=== PATIENT | male | born 1940 | race Caucasian/White ===

== ENCOUNTER 2022-12-21 12:07 | Observation (INO) | payer OTHER ==
[2022-12-21 13:49] LABS: BASO % 0.5 % (0-2.0); EOS % 1.7 % (0-4.5); HEMATOCRIT 40.3 % (35.4-49); HEMOGLOBIN 13.5 GM/dL (11.7-16.9); LYMPH % 26.4 % (8-40); MCH 28.6 pg (25.7-33.7); MCHC 33.5 g/dl (32.0-35.9); MEAN CELL VOLUME 85.5 fl (80-96); MONO % 7.7 % (3.8-10.2); NEUT % 63.7 % (42.8-82.8); PLATELET COUNT 279 10^3/uL (134-434); RBC 4.71 M/mm3 (4.00-5.60); RDW 14.5 % (11.9-15.9); WHITE BLOOD COUNT 7.3 K/mm3 (4.0-10.0)
[2022-12-21 13:59] LABS: INR 1.01 (0.83-1.09); PROTHROMBIN TIME (PATIENT) 11.7 SEC (9.7-13.0)
[2022-12-21 14:02] LABS: ACTIVATED PTT 31.3 SECONDS (25.2-36.5)
[2022-12-21 14:07] LABS: POTASSIUM 4.7 mmol/L (3.5-5.1)
[2022-12-21 14:09] LABS: ALBUMIN 3.4 g/dl (3.4-5.0); CALCIUM 9.3 mg/dL (8.5-10.1)
[2022-12-21 14:10] LABS: BLOOD UREA NITROGEN 19.8 mg/dL (7-18)
[2022-12-21 14:14] LABS: BILIRUBIN,TOTAL 0.4 mg/dL (0.2-1); TOT PROT 7.4 g/dl (6.4-8.2)
[2022-12-21] MEDS ORDERED: PANTOPRAZOLE 40 MG TABLET PO ONE ×2 (15:56→16:27)
[2022-12-21] MEDS ORDERED: MECLIZINE HCL 12.5 MG TABLET PO PRN (16:03)
[2022-12-21] MEDS ORDERED: LACTATED RINGERS SOLUTION 1,000 ML/1,000 ML INFUS.BAG IV SCH (16:15)
[2022-12-21] MEDS: HEPARIN NA (PORCINE) 5,000 UNITS/ML 1ML VIAL SQ SCH (22:07)
[2022-12-22] MEDS ORDERED: LACTATED RINGERS SOLUTION 1,000 ML/1,000 ML INFUS.BAG IV SCH (08:15)
[2022-12-22] MEDS ORDERED: PANTOPRAZOLE 40 MG TABLET PO SCH (10:00)
[2022-12-22] MEDS: HEPARIN NA (PORCINE) 5,000 UNITS/ML 1ML VIAL SQ SCH ×2 (10:15→21:29)
[2022-12-22 12:58] VITALS: BMI 27.1
[2022-12-23 08:40] VITALS: TEMP 98.5
[2022-12-23] MEDS: HEPARIN NA (PORCINE) 5,000 UNITS/ML 1ML VIAL SQ SCH (10:04)
[2022-12-23 15:26] VITALS: BP 142/79; PULSE 60
[2022-12-23 15:27] VITALS: RESP 18
== END 2022-12-23 20:21 | disposition home or self-care (01) ==
LOC: JER 12:07 → JERBED 14:53 → J4S 12-22 07:54
PROVIDERS: ADMIT Internal Medicine; ATTEND Internal Medicine
PROC: 3E023GC Introduction of Other Therapeutic Substance into Muscle, Percutaneous Approach (ICD-10-PCS; principal; 2022-12-21)
PROC: 3E0337Z Introduction of Electrolytic and Water Balance Substance into Peripheral Vein, Percutaneous Approach (ICD-10-PCS; 2022-12-21)
DX: R00.1 Bradycardia, unspecified (principal); R42 Dizziness and giddiness
CPT/HCPCS: 36415; 70450-TC; 71045-TC-FY; 80053; 82607; 84443; 84484; 85025; 85610; 85730; 93005; 93010; 93306-TC; 93880-TC; 96360; 96372; 97116-GP; 97162-GP; 99285-25; G0378; J1644